=== PATIENT | male | born 1970 | race African-American/Black ===

== ENCOUNTER 2017-12-31 13:35 | Emergency (ER) | payer SELFPAY ==
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
--- NOTE | 2017-12-31 15:08 | CR ---
EXAMINATION: Sacrum and coccyx HISTORY: Pain COMPARISON: None TECHNIQUE: AP and lateral views FINDINGS: There is no acute osseous abnormality, dislocation, or fracture. Mild sclerosis noted along the superior aspect of the right SI joint with possible partial fusion. Bone mineralization and norm al. Sacrum and coccyx appear intact. IMPRESSION: No acute osseous abnormality identified.
--- NOTE | 2017-12-31 15:09 | CR ---
EXAMINATION: Right knee HISTORY: Pain COMPARISON: None TECHNIQUE: 3 views FINDINGS/IMPRESSION: There is no acute osseous abnormality, dislocation, or fracture. Bone mineraliza tion and joint spaces appear normal. No soft tissue swelling or joint effusion. Early osteophyte form ation.
== END 2017-12-31 15:56 | disposition home or self-care (01) ==
LOC: MW.ED 13:35
DX: S30.0XXA Contusion of lower back and pelvis, initial encounter (principal); M25.561 Pain in right knee; X58.XXXA Exposure to other specified factors, initial encounter
CPT/HCPCS: 72220; 72220-26; 73562-26-RT; 73562-RT; 99283; 99284

== ENCOUNTER 2018-05-27 11:16 | Day surgery (SDC) | payer BC ==
[~2018-05-27 11:16] MED LIST: Betamethasone Acetate/Betamethasone Sod Phosphate 30 MG/5 ML MDV ONE; Iopamidol 408 MG/ML 50 ML SDV ONE; Lidocaine 1% 0 ML ONE; Lidocaine 2% 5 ML SDV ONE; Ropivacaine 0.5% 5 MG/ML 30 ML SDV ONE
--- NOTE | 2018-05-27 13:51 | OR ---
SURGEON: Jaimie Oliva D.O. DATE OF PROCEDURE: 05/27/2018 OR STAFF PRESENT: 1. Edgar Galo RN. 2. Julisa Romero RN. 3. Dunia Calvillo RT. WOUND CLASSIFICATION: I. PREOPERATIVE DIAGNOSES: 1. Lumbar degenerative disk disease. 2. Lumbar radiculopathy. 3. Coccydynia. POSTOPERATIVE DIAGNOSES: 1. Lumbar degenerative disk disease. 2. Lumbar radiculopathy. 3. Coccydynia. PROCEDURE PERFORMED: 1.Caudal epidural steroid injection 2. fluoroscopic guidance for needle placement, 3. local with oral valium for sedation. SCREENING QUESTIONS: The patient answered "no" to all of the following questions: 1. Are you allergic to latex? 2. Do you have a bleeding disorder? 3. Do you have any current local or systemic infections? 4. Are you taking any anti-inflammatories or blood thinners? 5. Do you have any joint replacements, heart valve replacements, or a pacemaker? DESCRIPTION OF PROCEDURE: The patient had the procedure thoroughly explained including all possible risks, benefits and alternatives. Consent was signed in my clinic indicating understanding and willingness to proceed. The patient presented to [facility] [place] and was escorted to the dressing room to disrobe and change into a hospital gown. Preoperative vital signs were taken and stable. The patient reported that Valium was taken prior to the procedure. The patient was brought back to the procedure room and placed in the prone position on the procedure room table. A pillow was placed under the hips in order to flatten the lumbar lordosis. The back was prepped with ChloraPrep and sterilely draped. All personnel in the operating room were dressed in appropriate attire including surgical scrubs, head and shoe covers. This was to ensure sterility while in the treatment room. During the time fluoroscopy was in use, all personnel in the operating room wore lead duarte with thyroid collars. Sterile technique was used throughout the procedure. The patient was awake and conversant throughout the procedure. There was no evidence of infection at the site of needle insertion. Skeletal landmarks were identified under fluoroscopy for the caudal epidural. Skin was anesthetized with 2% lidocaine with a sterile 27-gauge 1.5 inch needle. Then a 20-gauge Tuohy epidural needle was placed in the epidural space with loss of resistance technique under fluoroscopic guidance. No heme, cerebrospinal fluid, or paresthesias were noted. Isovue-200 contrast dye was injected in 0.2 cubic centimeter increments and seen to outline the epidural space in both AP and lateral views. There was no intravascular flow pattern observed under live fluoroscopy. Then 12 milligrams of Celestone was slowly injected after negative aspiration. The patient tolerated the procedure well. Vital signs were stable during and after the procedure. The staff escorted the patient to the recovery area and the patient was released in stable condition after a brief stay in the recovery room monitored by the nurse. The patient was given both oral and written discharge and follow up instructions with recommendation to follow up given for 2-3 weeks. The patient voiced understanding including understanding of those signs and symptoms that would require emergency care. The patient knows how to contact the office if there are any additional problems or questions in the meantime. REILLY / ANUJA /[id number] CARRILLO
== END 2018-05-27 12:59 ==
LOC: MW.SDS 11:16
PROVIDERS: ATTEND Anesthesiology
DX: M51.16 Intervertebral disc disorders with radiculopathy, lumbar region (principal); M53.3 Sacrococcygeal disorders, not elsewhere classified; M79.1 Myalgia; M48.061 Spinal stenosis, lumbar region without neurogenic claudication; Z79.899 Other long term (current) drug therapy
CPT/HCPCS: 62323; J0702; J2795; Q9966

== ENCOUNTER 2018-07-07 06:29 | Day surgery (SDC) | payer BC ==
[~2018-07-07 06:29] MED LIST changes: -Betamethasone Acetate/Betamethasone Sod Phosphate 30 MG/5 ML MDV ONE; -Iopamidol 408 MG/ML 50 ML SDV ONE; +Lactated Ringers 1,000 ML IV SCH; -Lidocaine 1% 0 ML ONE; -Lidocaine 2% 5 ML SDV ONE; -Ropivacaine 0.5% 5 MG/ML 30 ML SDV ONE
--- NOTE | 2018-07-07 07:05 | PCM.PREANE ---
Preanesthetic Assessment - Anesthesia/Transfusion/Family Hx Anesthesia History: Prior Anesthesia Without Reaction Family History of Anesthesia Reaction: No Transfusion History: No Prior Transfusion(s) - Review of Systems General: No Symptoms Pulmonary: No Symptoms Cardiovascular: No Symptoms Gastrointestinal: No Symptoms Neurological: No Symptoms Other: Reports: None - Physical Assessment O2 Sat by Pulse Oximetry: 98 Respiratory Rate: 16 Vital Signs: Last Vital Signs Temp 36.4 C 07/07/18 06:45 Pulse 49 L 07/07/18 06:45 Resp 16 07/07/18 06:45 BP 126/76 07/07/18 06:45 Pulse Ox 98 07/07/18 06:45 Height: 1.93 m Weight: 111.13 kg ASA Class: 1 Mental Status: Alert & Oriented x3 Airway Class: Mallampati = 2 Dentition: Reports: Normal Dentition Thyro-Mental Finger Breadths: 3 Mouth Opening Finger Breadths: 3 ROM/Head Extension: Full Lungs: Clear to Auscultation, Normal Respiratory Effort Cardiovascular: Regular Rate, Regular Rhythm - Allergies Allergies/Adverse Reactions: Allergies Allergy/AdvReac Type Severity Reaction Status Date / Time No Known Allergies Allergy Verified 07/02/18 11:33 - Blood Blood Available: No - Anesthesia Plan Pre-Op Medication Ordered: None - Acknowledgements Anesthesia Type Planned: General Anesthesia Pt an Appropriate Candidate for the Planned Anesthesia: Yes Alternatives and Risks of Anesthesia Discussed w Pt/Guardian: Yes Pt/Guardian Understands and Agrees with Anesthesia Plan: Yes PreAnesthesia Questionnaire - Past Health History Medical/Surgical History: Denies Medical/Surgical History Musculoskeletal History: Reports: Back Pain, Chronic, Other (See Below) (medial meniscus tear rt. knee) - Past Surgical History Musculoskeletal Surgical History: Reports: Arthroscopic Knee (same knee in ) - SUBSTANCE USE Smoking Status *Q: Never Smoker Recreational Drug Use History: No - HOME MEDS Home Medications: Home Meds Gabapentin [Neurontin] 300 mg PO TID 07/02/18 [History] Methocarbamol 750 mg PO ASDIRECTED PRN 07/02/18 [History] - CURRENT (IN HOUSE) MEDS Current Meds: Current Medications Hydrocodone Bitart/Acetaminophen (Dora 325-5 Mg) 1 - 2 tab PO Q4H PRN PRN Reason: Pain Cefazolin Sodium/Dextrose 2 gm (/ Premix) 50 mls @ 100 mls/hr IV ONCALL KAITLYN Lactated Ringer's (Ringers, Lactated) 1,000 mls @ 100 mls/hr IV ASDIRECTED [facility] Last Admin: 07/07/18 06:50 Dose: 100 mls/hr
[2018-07-07] MEDS ORDERED: Midazolam 1 MG/ML 2 ML SDV ONE (07:10)
[2018-07-07] MEDS ORDERED: fentaNYL 250 MCG/5 ML SDV ONE (07:10)
[2018-07-07] MEDS ORDERED: Propofol 200 MG/20 ML SDV ONE (07:10)
[2018-07-07] MEDS ORDERED: Lidocaine 2% 5 ML SDV ONE (07:11)
[2018-07-07] MEDS ORDERED: ePHEDrine 50 MG/ML SDV ONE (07:11)
[2018-07-07] MEDS ORDERED: Ondansetron 4 MG/2 ML SDV ONE (07:11)
[2018-07-07] MEDS ORDERED: ceFAZolin/Dextrose,Iso-Osmotic 2 GM/50 ML Duplex Bag IV ONE (07:12)
[2018-07-07] MEDS ORDERED: Lidocaine 1% 20 ML MDV ONE (07:39)
[2018-07-07] MEDS ORDERED: Acetaminophen/HYDROcodone 325-5 MG Tab PO PRN (08:00)
[2018-07-07] MEDS ORDERED: ceFAZolin 2 GM in Premix Bag 1 BAG IV SCH (08:00)
[2018-07-07] MEDS ORDERED: Glycopyrrolate 0.2 MG/ML SDV ONE (08:27)
[2018-07-07] MEDS ORDERED: Ketorolac 30 MG/ML SDV ONE (08:38)
--- NOTE | 2018-07-07 08:52 | PCM.OPNOTE ---
- General Post-Op/Procedure Note Date of Surgery/Procedure: 07/07/18 Operative Procedure(s): R knee arthroscopy with partial medial menisectomy Post-Op Diagnosis: R knee DJD and medial meniscus tear Anesthesia Technique: General LMA Primary Surgeon: Yudi Rodriguez Manager Surgical: Dora Nguyen in mLs: 5 Condition: Good Free Text/Narrative:: tt=12 min #[id number]
--- NOTE | 2018-07-07 09:07 | PCM.POSTAN ---
POST ANESTHESIA ASSESSMENT - MENTAL STATUS Mental Status: Alert, Oriented - RESPIRATORY Respiratory Status: Respiratory Rate WNL, Airway Patent, O2 Saturation Stable - CARDIOVASCULAR CV Status: Pulse Rate WNL, Blood Pressure Stable - GASTROINTESTINAL GI Status: No Symptoms - PAIN Pain Score: 0 - POST OP HYDRATION Hydration Status: Adequate & Stable
--- NOTE | 2018-07-07 09:26 | PCM48HPAN ---
Post Anesthesia Note - EVALUATION WITHIN 48HRS OF ANESTHETIC Vital Signs in Normal Range: Yes Patient Participated in Evaluation: Yes Respiratory Function Stable: Yes Airway Patent: Yes Cardiovascular Function Stable: Yes Hydration Status Stable: Yes Pain Control Satisfactory: Yes Nausea and Vomiting Control Satisfactory: Yes Mental Status Recovered: Yes Resp Rate: 12
--- NOTE | 2018-07-07 09:57 | PCM48HPAN ---
Post Anesthesia Note - EVALUATION WITHIN 48HRS OF ANESTHETIC Vital Signs in Normal Range: Yes Patient Participated in Evaluation: Yes Respiratory Function Stable: Yes Airway Patent: Yes Cardiovascular Function Stable: Yes Hydration Status Stable: Yes Pain Control Satisfactory: Yes Nausea and Vomiting Control Satisfactory: Yes Mental Status Recovered: Yes Resp Rate: 12 - COMMENTS/OBSERVATIONS Free Text/Narrative:: no anesthesia problems
--- NOTE | 2018-07-07 11:34 | OR ---
SURGEON: Yudi Rodriguez MD DATE OF PROCEDURE: 07/07/2018 PREOPERATIVE DIAGNOSIS: Right knee medial meniscus tear. POSTOPERATIVE DIAGNOSES: 1. Right knee medial meniscus tear. 2. Right knee degenerative joint disease. PROCEDURE: Right knee arthroscopy with partial medial meniscectomy. PETROGRAPHY TEACHER: Dora Nguyen PA-C ANESTHESIA: General. ESTIMATED BLOOD LOSS: 5 mL. TOURNIQUET TIME: 12 minutes. COMPLICATIONS: None. DVT PROPHYLAXIS: Not indicated. IMPLANTS USED: None. BRIEF HISTORY: Lalito is a 47-year-old male, who sustained an injury to his right knee. An MRI did show a tear of the medial meniscus. He has previously undergone a right knee arthroscopy in 2009 and did well following that procedure. Due to his lack of response to conservative treatment, I did recommend surgical intervention. The risks and goals of procedure were discussed with the patient and were documented preoperatively. He agreed to proceed. DESCRIPTION OF PROCEDURE: Patient was properly identified and brought to the operating room. He was transferred from the OR cart and placed on the operating room table in supine position. General anesthesia was administered. After adequate anesthesia was obtained, a well-padded tourniquet was applied to the right lower extremity. The right lower extremity was then prepped in standard fashion using ChloraPrep solution. It was then sterilely draped. A time-out was performed to ensure correct site and procedure. Preoperative antibiotics were given. The surgical site had been marked preoperatively. An Esmarch was used to exsanguinate the right lower extremity and the tourniquet was inflated to 250 mmHg. A lateral portal arthrotomy was established. Blunt trocar and cannula were introduced into the suprapatellar pouch. Camera, inflow, and outflow were assembled. No significant synovitis was noted in the suprapatellar pouch. The patellofemoral joint was then visualized. The patella showed no significant degenerative findings. 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 The patella appeared to track centrally. I then extended down the lateral medial gutter. No loose bodies were identified. I then entered the medial compartment. A medial portal arthrotomy was established. A blunt probe was inserted. The meniscus was quite small, which was consistent with his history of previous partial meniscectomy. He was found to have a radial tear along the posterior medial aspect of the meniscus. Using a combination of biters and shaver, this was resected back to a stable remnant. It was again probed and found to be stable. He had significant grade 2 to grade 3 chondromalacia along the medial tibial plateau. Grade 1 chondromalacia was noted along the medial femoral condyle. I then entered the notch. Both the ACL and PCL were visualized and probed and found to be intact. I then entered the lateral compartment. The lateral meniscus was visualized. Minor degenerative fraying was noted along the central portion. No instability was found. Grade 3 chondromalacia was noted along the lateral tibial plateau. Grade 1 chondromalacia was noted along the lateral femoral condyle. I then re-entered the patellofemoral joint. The trochlea was inspected. He did have a few areas of loose cartilage, which was resected with the shaver by performing a chondroplasty. Instruments were then removed from the knee. The portal sites were closed with 3-0 nylon. 1% Lidocaine was injected along the portal tracts. Xeroform gauze was placed over the wound and a bulky dressing was applied. The tourniquet was then deflated. He was awakened from his anesthetic and transferred back to the operating room cart. He was brought to recovery room in stable condition. All needle and sponge counts were correct. OLIVIA / ANUJA /[id number] CARRILLO
== END 2018-07-07 10:10 | disposition home or self-care (01) ==
LOC: MW.SDS 06:29
PROVIDERS: ATTEND Orthopaedic Surgery
DX: S83.231A Complex tear of medial meniscus, current injury, right knee, initial encounter (principal); M17.11 Unilateral primary osteoarthritis, right knee; M94.261 Chondromalacia, right knee; Z79.899 Other long term (current) drug therapy; X58.XXXA Exposure to other specified factors, initial encounter
CPT/HCPCS: 29881; A9270; J0690; J1885; J2250; J2405; J2704; J3010; J3490; J7120

== ENCOUNTER 2020-09-24 11:35 | Emergency (ER) | payer BC, OTHER ==
[2020-09-24] MEDS ORDERED: Acetaminophen/oxyCODONE 325-5 MG Tab PO ONE (11:38)
[2020-09-24] MEDS ORDERED: Sodium Chloride 0.9% 10 ML Syringe FLUSH PRN (11:38)
[2020-09-24] MEDS ORDERED: Sodium Chloride 0.9% 2.5 ML Syringe FLUSH PRN (11:38)
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
[2020-09-24 12:27] LABS: BLOOD UREA NITROGEN,BUN 15 mg/dL (7.0-18.0); CHLORIDE,CL 106 mmol/L (98-107); GLUCOSE RANDOM 103 mg/dL (74-106); POTASSIUM,K 4.1 mmol/L (3.5-5.1); SODIUM,NA 141 mmol/L (136-148)
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
[2020-09-24] MEDS ORDERED: Iopamidol 755 MG/ML 500 ML Multipack Bottle IVPUSH STA (13:39)
== END 2020-09-24 14:09 | disposition home or self-care (01) ==
LOC: MW.ED 11:35
DX: R42 Dizziness and giddiness (principal); S30.0XXA Contusion of lower back and pelvis, initial encounter; R00.1 Bradycardia, unspecified; V49.9XXA Car occupant (driver) (passenger) injured in unspecified traffic accident, initial encounter
CPT/HCPCS: 36415; 70450; 71260; 72126; 74177; 80053; 83605; 83735; 84484; 85025; 85610; 85730; 93005; 99284; A9270; Q9967; 72128-26; 72131-26

== ENCOUNTER 2022-12-25 05:52 | Emergency (ER) | payer SELFPAY ==
[2022-12-25] MEDS ORDERED: Sodium Chloride 0.9% 1,000 ML IV SCH (06:45)
[2022-12-25 07:02] LABS: CARBON DIOXIDE,CO2 28.4 mmol/L (21.0-32.0); POTASSIUM,K 4.1 mmol/L (3.5-5.1)
[2022-12-25 07:21] LABS: CORONAVIRUS COVID-19 NAA POSITIVE (NEGATIVE); INFLUENZA A NAA NEGATIVE (NEGATIVE); INFLUENZA B NAA NEGATIVE (NEGATIVE); RESPIRATORY SYNCYTIAL VIR NAA NEGATIVE (NEGATIVE)
[2022-12-25] MEDS ORDERED: Acetaminophen 500 MG Tab PO ONE (09:52)
[2022-12-25] MEDS ORDERED: Ibuprofen 600 MG Tab PO ONE (09:52)
== END 2022-12-25 11:52 | disposition home or self-care (01) ==
LOC: MW.ED 05:52
DX: U07.1 COVID-19 (principal)
CPT/HCPCS: 0241U; 36415; 71045; 80053; 81003; 83690; 85025; 87086; 87389; 96360; 99284; A9270; J7030